=== PATIENT | female | born 1960 | race Caucasian/White ===

== ENCOUNTER 2022-12-05 20:46 | Emergency (ER) | payer SELFPAY ==
[~2022-12-05] VITALS: Ht 167.6 cm; Wt 88.5 kg
[2022-12-05 20:49] VITALS: BP 164/84
== END 2022-12-05 23:16 | disposition home or self-care (01) ==
LOC: ER 20:46
DX: S86.111A Strain of other muscle(s) and tendon(s) of posterior muscle group at lower leg level, right leg, initial encounter (principal); X58.XXXA Exposure to other specified factors, initial encounter; K21.9 Gastro-esophageal reflux disease without esophagitis; M19.90 Unspecified osteoarthritis, unspecified site
CPT/HCPCS: 73590; 73610; 73630; 99283-25